=== PATIENT | male | born 1945 | race Caucasian/White ===

== ENCOUNTER 2017-01-29 16:23 | Inpatient (IN) | payer MEDICARE ==
[~2017-01-29] VITALS: Ht 177.8 cm; Wt 89.2 kg
[~2017-01-29 16:23] MED LIST: ASPI325T32 PO; ATOR20TA PO; CHRO1TAB8 PO; CLOP75TA28 PO; FISH OIL OMEGA1 EAC1 PO; METO25TA6 PO; MULT1CAP33 PO
[2017-01-29 16:25] VITALS: BP 165/75; PULSE 95; RESP 20; O2SAT 100
[2017-01-29] MEDS ORDERED: 0.9% Sodium Chloride 1,000 ML IV ONE (16:36)
--- NOTE | 2017-01-29 16:50 | ED.REPORT ---
HPI-General Illness Date of Service Jan 29, 2017 ED Provider: Mazin Conde MD A 72 year old male with a history of [place], stent, hypertension and diabetes presents to the ED due to a possible stroke. The pt was walking with a friend at 14:00 when he had a sudden episode of slurred speech. The episode lasted one to two minutes then resolved spontaneously. This occurred two more times after the initial episode. The pt believes that his symptoms may be related to a stroke or TIA. He denies facial droop, numbness, weakness, nausea, vomiting, diarrhea or chest pain. He also denies recent head trauma or any history of stroke, atrial fibrillation, seizure or brain tumor. The pt has never experienced similar symptoms. Nursing Notes Stated Complaint: STROKE SYMPTOMS Chief Complaint: Stroke Symptoms Nursing Notes Reviewed: Yes Allergies: Coded Allergies: No Known Allergies (Unverified , 01/29/17) Scheduled Aspirin (Aspirin) 325 Mg Tablet 325 MG PO DAILY Atorvastatin (Lipitor) 20 Mg Tablet 20 MG PO DAILY Chromium/Herbal Complex No.238 (Green Tea Caplet) 1 Each Tablet 1 EACH PO DAILY Clopidogrel (Clopidogrel) 75 Mg Tablet 75 MG PO DAILY Metoprolol Tartrate (Metoprolol Tartrate) 25 Mg Tablet 12.5 MG PO BID Multivitamin (Multivitamins) 1 Each Capsule 1 EACH PO DAILY [place]-3/Dha/Epa/Fish Oil (Fish Oil [place]-3 Softgel) 1 Each Capsule.dr 1 EACH PO DAILY General Time Seen by MD: 16:33 Chief Complaint Other (Possible stroke) Hx Obtained From: Patient Arrived By: Walk-in Sudden in Onset?: Yes Onset Occurred: 1 - 4 hours ago Symptom Duration: Intermittent Recent Healthcare: No recent doctor visit, No recent hospitalization Similar Sx Previous: No Past Medical History Past Medical History hypertension diabetes [place] Past Surgical History ankle surgery 20+ years ago stent placement Smoking History Former Smoker Social History Alcohol Use: "Social" Other Social History: Good social support Ambulatory Status Independent Review of Systems slurred speech denies facial droop Full Review of Systems Respiratory: Denies: Non-productive cough, Shortness of breath Cardiovascular: Denies: Chest pain GI: Denies: Abdominal pain, Diarrhea, Nausea, Vomiting Musculoskeletal: Denies: Back pain, Neck pain Skin: Denies Rash Neurologic: Denies: Numbness, Weakness Complete sys rev & neg: except as marked. Physical Exam Vital Signs Vital Signs Date Time Temp Pulse Resp B/P Pulse Ox O2 Delivery O2 Flow Rate FiO2 01/29/17 18:29 54 22 161/65 93 Room Air 01/29/17 17:31 54 19 153/60 96 Room Air 01/29/17 16:25 36.7 95 20 165/75 100 Room Air Initial VS: Reviewed General/Constitutional: Awake, Alert Head / Eyes: Atraumatic, Normocephalic, PERRL, EOMI ENT: Atraumatic, Airway patent, Mucous membranes moist Neck: Atraumatic, Supple, Full range of motion Respiratory / Chest: Atraumatic, Breath sounds NL, Breath sounds = bilat, No respiratory distress Cardiovascular: Heart rate NL, Regular rhythm, Heart sounds NL, No gallop, No murmurs, No rubs Abdomen: Atraumatic, Soft, Non-tender Back: Atraumatic, Full range of motion Upper Extremities Upper Extremity / MS: Atraumatic, Full range of motion Lower Extremity / Pelvis / MS: Atraumatic, Full range of motion Skin: Atraumatic, Color NL, No rash, Warm, Dry Neurologic: Oriented X3, Speech NL, CN II - XII intact speaking fluently in full sentences no slurred speech or facial droop mild left sided pronator drift strength 5/5 in bilateral upper and lower extremities sensation intact in all extremities mild dysmetria with finger to nose testing of the left hand Psychiatric: Affect NL, Mood NL Interpretation & Diagnostics Lab Results Interpretation Result Diagram: 01/29/17 1729 01/29/17 1729 Test 01/29/17 17:29 01/29/17 18:42 White Blood Count 6.8th/mm3 (3.8-10.1) Red Blood Count 4.99mil/mm3 (4.40-5.80) Hemoglobin 14.5g/dL (13.8-17.2) Hematocrit 42.9% (41.0-50.0) Mean Corpuscular Volume 86fL (81-100) Mean Corpuscular Hemoglobin 29.1pg (27.0-35.0) Mean Corpuscular Hemoglobin Concent 33.8% (32.0-37.0) Red Cell Distribution Width 13.4% (12.3-15.4) Platelet Count 144bil/L (150-400) Neutrophils (%) (Auto) 69% (40-74) Lymphocytes (%) (Auto) 20% (14-46) Monocytes (%) (Auto) 10% (4-12) Eosinophils (%) (Auto) 1% (0-5) Basophils (%) (Auto) 0% (0-3) Prothrombin Time 11.0sec (8.1-12.5) Prothromb Time International Ratio 1.03ratio Sodium Level 138mEq/L (134-144) Potassium Level 4.2mEq/L (3.5-5.2) Chloride Level 100mEq/L (97-108) Carbon Dioxide Level 24mmol/L (18-29) Blood Urea Nitrogen 26mg/dL (8-27) Creatinine 1.38mg/dL (0.76-1.27) Estimat Glomerular Filtration Rate 54mL/min (>59) Glucose Level 155mg/dL (60-99) Lactic Acid Level 1.6mmol/L (0.4-2.0) Calcium Level 9.4mg/dL (8.5-10.1) Magnesium Level 2.0mg/dL (1.6-2.6) Total Bilirubin 0.5mg/dL (0.0-1.2) Aspartate Amino Transf (AST/SGOT) 26U/L (0-50) Alanine Aminotransferase (ALT/SGPT) 36U/L (0-44) Alkaline Phosphatase 82U/L (25-160) Troponin T < 0.010ug/L (0.0-0.011) Total Protein 6.5g/dL (6.4-8.4) Albumin 4.0g/dL (3.4-5.0) Urine Color Yellow (YELLOW) Urine Appearance Clear (CLEAR,HAZY) Urine pH 6.5 (5.0-8.0) Urine Specific [place] 1.010 (1.003-1.035) Urine Protein Negativemg/dL (NEG,TRACE) Urine Glucose (UA) Negativemg/dL (NEGATIVE) Urine Ketones Negativemg/dL (NEGATIVE) Urine Occult Blood Negative (NEGATIVE) Urine Nitrite Negative (NEGATIVE) Urine Bilirubin Negative (NEGATIVE) Urine Urobilinogen Normalmg/dL (NORMAL) Urine Leukocyte Esterase Negative (NEGATIVE) Urine RBC 0-2/hpf (0-2) Urine WBC 0-5/hpf (0-5) Urine Epithelial Cells Few/hpf (NONE-MOD) Urine Crystals None seen (NONE SEEN) Urine Bacteria Few/hpf (NONE-FEW) Urine Hyaline Casts None/lpf (NONE) Urine Granular Casts None seen (NONE SEEN) Urine Waxy Casts None seen (NONE SEEN) Urine Red Blood Cell Casts None seen (NONE SEEN) Urine White Blood Cell Casts None seen (NONE SEEN) Urine Mucus None seen (None Seen) Urine Trichomonas None seen (NONE SEEN) Urine Yeast None (NONE SEEN) Urinalysis Comment None Urine Culture Reflexed Not indicated ECG Interpretation ECG Interpretation: normal sinus rhythm with a rate of 52 normal axis normal interval no ST segment elevation no T wave inversions when compared with previous dated 02/14/2015, pt remains with sinus bradycardia no significant changes Time: 17:55 Interpreted by: ED physician X-Ray Chest Interpretation Chest Xray Interpretation: IMPRESSION: No radiographic evidence of acute cardiopulmonary pathology. Dictated by: Severiano Muñoz M.D. on 01/29/2017 at 16:58 Approved by: Severiano Muñoz M.D. on 01/29/2017 at 16:59 Interpretation / Wet Read by: Interpret - Radiologist CT Head Interpretation IMPRESSION: No CT evidence of acute intracranial pathology. Dictated by: Severiano Muñoz M.D. on 01/29/2017 at 17:00 Approved by: Severiano Muñoz M.D. on 01/29/2017 at 17:01 Interpretation / Wet Read by: Interpret - Radiologist Re-Eval/Medical Decision Med Decision/Clinical Course A 72 year old male with a history of [place], stent, hypertension and diabetes presents to the ED due to a possible stroke. The pt was walking with a friend at 14:00 when he had a sudden episode of slurred speech. The episode lasted one to two minutes then resolved spontaneously. This occurred two more times after the initial episode. The pt believes that his symptoms may be related to a stroke or TIA. He denies facial droop, numbness, weakness, nausea, vomiting, diarrhea or chest pain. He also denies recent head trauma or any history of stroke, atrial fibrillation, seizure or brain tumor. The pt has never experienced similar symptoms. Upon arrival to the emergency department the patient reports that his symptoms have completely resolved. Full head to toe neurologic examination is completely unremarkable except for very mild left-sided pronator drift. He has no active slurred speech or significant motor deficits. CT Head: IMPRESSION: No CT evidence of acute intracranial pathology. Chest X-Ray: IMPRESSION: No radiographic evidence of acute cardiopulmonary pathology. Lab for studies notable as below: UA positive for THC, otherwise unremarkable CBC unremarkable CMP unremarkable except for mildly elevated creatinine at 1.38 Lactic acid 1.6 Troponin negative No significant electrolyte abnormalities EKG was obtained and interpreted by myself as documented above. Of note, after initial workup the patient was again noted to have significant slurred speech and per nurse mild right-sided facial droop. By the time I was able to evaluate the patient at the bedside all of his symptoms had artery resolved. Of one to 2 minutes. At this time, the patient's overall presentation is concerning for recurrent TIAs. I feel that the patient requires admission to the hospital for further workup and stroke risk stratification. He has received aspirin in the emergency department. At this time there is no evidence of seizure or intracranial hemorrhage/mass lesion. The patient was discussed with the medical hospitalist accepted for further management stable condition. He is not considered to be a TPA candidate due to the brief nature of his neurologic deficits and rapid spontaneous resolution thereof. Source of Hx: Old records Time of Eval: 16:33 Patient Status: Condition improved Re-Evaluation/Progress Note: Pt is informed of the diagnosis and plan for admission during the initial interview. The pt understands and agrees with the plan. All questions are addressed at this time. Time of Eval: 17:20 Re-Evaluation/Progress Note: Pt rechecked, whose symptoms have recurred. Pt is stable and prepared for admission. Consultation : Referral / Consult Name: Angel Luis Nava MD Consulted With: Hospitalist Call Returned at: 17:35 Phlebotomy Manager: Agrees with eval, Agrees with plan, Accepts admit Note: Spoke with Dr. Nava, hospitalist, regarding pt's case. Dr. Nava agrees with the evaluation and agrees to admit the pt. Counseled Regarding: Diagnosis, Lab results, Need for admission Discharge & Departure Primary Impression: Transient ischemic attack Transient cerebral ischemia type: unspecified Qualified Code: G45.9 - Transient cerebral ischemic attack, unspecified Additional Impression: Slurring of speech Disposition: ADMITTED TO HOSPITAL Discharge Condition All VS Reviewed: Yes Condition: Stable Referrals: Kev Gomez MD (PCP) Crit Care Except Billable Proc Time Spent: 30-74 minutes Services Performed: Patient management by me, Time spent at bedside, Reviewing test results, Reviewing imaging, Discussing patient care, Documentation in record, Time with fam/surrogate Critical Care Notes: Decisions regarding administration of TPA Scribe Attestation Portions of this note were transcribed by Nic Shah. I, Dr. Conde personally performed the history, physical exam and medical decision-making; I reviewed and confirmed the accuracy of the information in the transcribed note. copies to: Kev Gomez MD, Beck O MD Jan 29, 2017 16:49 NIC SHAH Jan 29, 2017 16:59
[2017-01-29] MEDS ORDERED: Ondansetron 2 mg/mL 2 mL Inj IVPUSH PRN ×2 (17:00→17:45)
[2017-01-29] MEDS ORDERED: Alum-Mag Hydrox-Simeth 30 mL Suspension PO PRN ×2 (17:00→17:45)
--- NOTE | 2017-01-29 17:01 | DRSVH ---
PROCEDURE: X-RAY CHEST ONE VIEW, PORTABLE ([id number]) INDICATIONS: ALTERED MENTAL STATUS TECHNIQUE: One view of the chest was acquired. COMPARISON: None. FINDINGS: Surgical changes and devices: None. Lungs and pleura: No pleural effusions or pneumothorax. Lungs are clear. Mediastinum: Mediastinal contours appear normal. Heart size is normal. Bones and chest wall: No suspicious bony lesions. Overlying soft tissues appear unremarkable. Righ t shoulder degenerative change. IMPRESSION: No radiographic evidence of acute cardiopulmonary pathology. Dictated by: Severiano Muñoz M.D. on 01/29/2017 at 16:58 Approved by: Severiano Muñoz M.D. on 01/29/2017 at 16:59
--- NOTE | 2017-01-29 17:03 | DRSVH ---
PROCEDURE: CT BRAIN WITHOUT CONTRAST ([id number]) INDICATIONS: ams TECHNIQUE: Noncontrast 4.5 mm thick angled axial sections acquired from the foramen magnum to the vertex, with c oronal reformats. COMPARISON: None. FINDINGS: Image quality: Excellent. CSF spaces: Basal cisterns are patent. No extra-axial fluid collections. Ventricles are normal in size and shape. Brain: No midline shift. No intracranial masses or hemorrhage. [place]-white matter interface is norm al. Skull and face: Calvarium and visualized facial bones are intact, without suspicious lesions. Sinuses: Visualized sinuses and mastoids are clear. IMPRESSION: No CT evidence of acute intracranial pathology. Dictated by: Severiano Muñoz M.D. on 01/29/2017 at 17:00 Approved by: Severiano Muñoz M.D. on 01/29/2017 at 17:01
[2017-01-29 17:31] VITALS: BP 153/60; PULSE 54; RESP 19; O2SAT 96
[2017-01-29 17:36] LABS: BASOPHILS % (AUTO) 0 % (0-3); EOSINOPHILS % (AUTO) 1 % (0-5); MONOCYTES % (AUTO) 10 % (4-12); Mean Corpuscular Hemoglobin 29.1 pg (27.0-35.0); Mean Corpuscular Volume 86 fL (81-100); NEUTROPHILS % (AUTO) 69 % (40-74); Platelet Count 144 bil/L (150-400)
[2017-01-29] MEDS ORDERED: Polyethylene Glycol (PEG) 17 Gm Powder PO PRN (17:45)
--- NOTE | 2017-01-29 17:54 | PCM.HPMED ---
Subjective Date of Service Jan 29, 2017 Primary Provider: Admitting Physician: Primary Care Physician: Kev Gomez MD Attending Physician: Chief Complaint: Patient is a 72-year-old right-handed male with medical history significant for diabetes type II, hypertension, dyslipidemia, and coronary artery disease sent it to the ED with transient slurred speech. History of Present Illness: Per patient, he states around 1400hr his partner noted significant slurring of speech with associated right hand numbness that it rapidly improve after 2-3 minutes resting. Patient denies any unilateral weakness, facial droop, lightheadedness, dizziness, shortness of breath, chest pain, or palpitation on doing or after the event. In fact patient has been walking for about 1/3 mile with dog without any difficulty. An following the event, patient walked to his home prior to coming to the. No nausea or vomiting. In the ED, patient vital remained stable temperature 36.7, respiratory rate 19, pulse oximetry 100%, however pulse is 54, and blood pressure is 153/60. Chest x -ray as well as CT brain was unremarkable. There were no noted neurological deficit on initial exam. EKG sinus bradycardic rate of 52. Per nursing report however, patient went on to have 3 separate episodes lasting between 1-2 minutes of slurred speech with slight right-sided facial droop. Blood work significant for creatinine of 1.38, significantly up from baseline of 0.8 and glucose of 155. Review of Systems: A comprehensive review of systems was conducted with the patient and found to be negative except as above in the History of Present Illness. Allergies Coded Allergies: No Known Allergies (Unverified , 01/29/17) Home Medications Metformin 500 mg daily Atenolol 50 mg daily Aspirin 81 mg daily PMH Diabetes type II Coronary artery disease Hypertension Dyslipidemia History of [place] Surgical History Stenting 1, distal RCA 2014 Family History Eyes any family history of heart disease Father had unspecified cancer Social History Hx Alcohol Use: Yes Alcoholic Drinks Per Day: 2-5 beers a week. Hx Substance Use: No Smoking Status: Former Smoker Exam Vital Signs Vital Sign - Last Date Time Temp Pulse Resp B/P Pulse Ox O2 Delivery O2 Flow Rate FiO2 01/29/17 17:31 54 19 153/60 96 Room Air 01/29/17 16:25 36.7 Exam General: No acute distress, appropriately interactive HEENT: Normocephalic, atraumatic. PERRLA, EOMI, Anicteric sclerae, moist conjunctivae. Neck: No JVD, No bruits. No lymphadenopathy or thyromegaly. Cardiovascular: Regular rate and rhythm with no murmurs, rubs, or gallops appreciated Pulmonary: b/l air sound with no crackles, wheezes, or rhonchi. no use of accessory muscles. Abdomen: +Bowel sound, Soft, nontender, nondistended. Extremities: No clubbing or cyanosis, no lymphedema, no b/l lower leg edema Skin: Normal temperature, turgor, and texture; no rash. No visualized skin ulcer. Neurological: CN II-VII grossly intact, moving equally on all 4 extremities, NIH score 0 Psychiatric: Normal mood and affect. AOx3 Lab and Diagnostics Result Diagram: 01/29/17 1729 X-Rays, CTs and MRIs PROCEDURE: CT BRAIN WITHOUT CONTRAST ([id number]) INDICATIONS: ams IMPRESSION: No CT evidence of acute intracranial pathology. Dictated by: Severiano Muñoz M.D. on 01/29/2017 at 17:00 Assessment & Plan Patient is a 72-year-old male with a medical history significant for diabetes type II, hypertension, [place] initially presented with slurred speech that resolved , admitted for TIA workup. TIA -CT head without contrast unremarkable for any acute findings -ASA 325mg and atorvastatin daily. consider nicardipine if SBP >200mmHg -Echocardiogram and MR stroke protocol ordered -Telemetry orders -Physical therapy eval ordered -neuro check q4h Acute Kidney Injury -Cr 1.3 from baseline 0.8 -likely dehydration -NS 125cc/hr. abstain from nephrotoxic meds Hypertension -bradycardic BP< 60 -hold home metopolol -as above, nicardipine if SBP >200mmhg. Coronary artery disease -1x stenting, off Plavix after 1.5yr -start statin as above Diabetes type II -A1c pending -Lispro low-dose sliding scale Dyslipidemia -Lipid panel ordered -Restart atorvastatin 40 mg daily CODE STATUS full code DVT prophylaxis heparin subq Patient Status: Patient is admitted under observation status with expected length of stay LESS than 2 midnights due to severity of presenting symptoms, risk of adverse event, and complexity of treatment plan. GI Prophylaxis: Not indicated VTE Prophylaxis: Sub-Q Heparin (Unfractionated) Resuscitation Status: CPR: Attempt Resuscitation Nathen Brown DO Jan 29, 2017 17:54
[2017-01-29 17:59] LABS: INR 1.03 ratio
[2017-01-29 18:29] VITALS: BP 161/65; PULSE 54; RESP 22; O2SAT 93
[2017-01-29 18:55] LABS: APPEARANCE,URINE CLEAR (CLEAR,HAZY); COLOR,URINE YELLOW (YELLOW); OCCULT BLOOD,URINE NEGATIVE (NEGATIVE); PH,URINE 6.5 (5.0-8.0); UROBILINOGEN,URINE NORMAL (NORMAL)
[2017-01-29 19:06] VITALS: BP 137/60; PULSE 48; RESP 22; O2SAT 93
[2017-01-29 20:00] VITALS: BP 144/72; PULSE 50; RESP 22; O2SAT 96
[2017-01-29] MEDS ORDERED: ASPI-973 PO (20:27)
[2017-01-29] MEDS ORDERED: METF500T4 PO (20:27)
--- NOTE | 2017-01-29 21:45 | NUR ---
ADMIT; 72 yr old male to room 1002 per margret from [facility] at approx. 1945 with c/o sudden tingling in hand and slurred speech while walking. Neuro check wnl now. Addendum: 01/30/17 at 0025 by BARBARA EARL RN SIG. other states pt is at his baseline now.
[2017-01-29] MEDS: 0.9% Sodium Chloride 1,000 ML IV SCH (23:23)
[2017-01-29] MEDS: Heparin 5,000 Unit/mL Inj SUBQ SCH (23:35)
--- NOTE | 2017-01-29 23:49 | NUR ---
CV; pt passed swallow eval. 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 Dr. esposito. Dr. Marx in to see pt. at 2330. Pt denies numbness, tingling or trouble with speech. Yard Coupler equal, swallowing without difficulty, perrl, tongue midline, eyebrows and smile symmetrical. Alert and oriented x3.
[2017-01-30 00:45] VITALS: BP 132/75; PULSE 46; RESP 20; O2SAT 94
[2017-01-30] MEDS: 0.9% Sodium Chloride 1,000 ML IV SCH ×2 (01:40→09:48)
--- NOTE | 2017-01-30 03:20 | NUR ---
; stood at side of bed independently to use the urinal.
--- NOTE | 2017-01-30 03:23 | NUR ---
NEURO; checks remain unchanged. Pt denying pain or discomfort. States having problems getting to sleep.
[2017-01-30 05:45] LABS: TROPONIN T 0.01 ug/L (0.0-0.011)
--- NOTE | 2017-01-30 08:09 | PCM.PNMED ---
Subjective Date of Service Jan 30, 2017 Subjective Patient seen and examined. Doing good today. No complaints. Vitals noted. Exam Vital Signs Vital Sign - Last Date Time Temp Pulse Resp B/P Pulse Ox O2 Delivery O2 Flow Rate FiO2 01/30/17 00:45 36.6 46 20 132/75 94 Room Air Intake and Output 01/29/17 01/29/17 01/30/17 Cumulative From/Thru 15:00 23:00 07:00 01/29/17 16:25 - 01/30/17 06:58 Intake Total 1000 ml 1083 ml 2083 ml Output Total 525 ml 525 ml Balance 1000 ml 558 ml 1558 ml Intake Oral 400 ml 400 ml IV Total 1000 ml 683 ml 1683 ml Output Urine Total 525 ml 525 ml # Voids 2 2 # Bowel Movements 0 0 Exam General: No acute distress, appropriately interactive HEENT: Normocephalic, atraumatic. PERRLA, EOMI, Anicteric sclerae, moist conjunctivae. Neck: No JVD, No bruits. No lymphadenopathy or thyromegaly. Cardiovascular: Regular rate and rhythm with no murmurs, rubs, or gallops appreciated Pulmonary: b/l air sound with no crackles, wheezes, or rhonchi. no use of accessory muscles. Extremities: No clubbing or cyanosis, no lymphedema, no b/l lower leg edema Neurological: CN II-VII grossly intact, moving equally on all 4 extremities, NIH score 0 Psychiatric: Normal mood and affect. AOx3 Lab and Diagnostics Result Diagram: 01/29/17 1729 01/30/17 0438 X-Rays, CTs and MRIs PROCEDURE: CT BRAIN WITHOUT CONTRAST ([id number]) INDICATIONS: ams IMPRESSION: No CT evidence of acute intracranial pathology. Dictated by: Severiano Muñoz M.D. on 01/29/2017 at 17:00 MRI Stroke protocol IMPRESSION: BRAIN MRI: 1. 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 2. Mild chronic deep white matter small vessel ischemic change and age related atrophy. 3. Mild, chronic bilateral maxillary sinusitis. BRAIN MR ANGIOGRAM: 1. Intracranial anterior circulation appears normal. 2. Intracranial posterior circulation is normal except for a focal low grade stenosis in the left posterior cerebral artery. NECK MR ANGIOGRAM: 1. Shallow plaque left ICA with 50% stenosis. Normal right bifurcation. 2. Left vertebral artery is dominant. Low grade focal stenosis at its origin. 3. Ostial stenosis nondominant right vertebral artery. 4. Focal stenosis right subclavian artery just beyond the origin of the common carotid. 5. Focal stenosis at the origin of the right common carotid artery. The estimate of stenosis included in the report of the imaging study was calculated using the NASCET method Cardiac Echo Impressions Interpretation Summary The ejection fraction is estimated to be 50-55%. There is proximal mid posteriolateral wall mild hypokinesis. The right ventricle is at the upper limits of normal in size. The left atrium is moderately dilated. There is no Doppler evidence for an interatrial shunt. There is mild mitral regurgitation. There is mild tricuspid regurgitation. The right ventricular systolic pressure is estimated at 46 mmHg assuming a right atrial pressure of 15 mm Hg. Compared to prior echo report on 2014, changes are noted. Assessment & Plan Patient is a 72-year-old male with a medical history significant for diabetes type II, hypertension, [place] initially presented with slurred speech that resolved , admitted for TIA workup. Admitted for TIA, Stroke confirmed, symptoms resolved -CT head without contrast unremarkable for any acute findings -ASA 325mg and atorvastatin daily. consider nicardipine if SBP >200mmHg -Echo and MRI noted above, acute/subacute stroke in parietal lobe , vessel changes in subclavian and vertebral arteries -Physical therapy eval ordered - Talked to Dr. 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, has never been diagnosed with afib/tachyarrhythmias - will stop metoprolol for now - outpatient holter Hypertension, chronic -bradycardic HR< 60, consistently -hold home metopolol - will start patient on amlodipine Coronary artery disease -1x stenting, off Plavix after 1.5yr -start statin as above Diabetes type II -A1c pending -Lispro low-dose sliding scale Dyslipidemia -Lipid panel ordered -Restart atorvastatin 40 mg daily CODE STATUS full code DVT prophylaxis heparin subq Patient Status: Patient is admitted under observation status with expected length of stay LESS than 2 midnights due to severity of presenting symptoms, risk of adverse event, and complexity of treatment plan. GI Prophylaxis: Not indicated VTE Prophylaxis: Sub-Q Heparin (Unfractionated) VTE Mechanical Devices: Intermittant Pneumatic CD Resuscitation Status: CPR: Attempt Resuscitation Time spent 35 mins Angel Luis Nava MD Jan 30, 2017 08:09
[2017-01-30 08:44] VITALS: BP 170/77; PULSE 49; RESP 17; O2SAT 95
[2017-01-30] MEDS: Heparin 5,000 Unit/mL Inj SUBQ SCH ×2 (09:50→17:14)
--- NOTE | 2017-01-30 10:22 | NUR ---
Evaluation completed. Please go to "Notes" then click on "Assessments and Notes" (bottom left corner of screen). Then select appropriate discipline tab on top of screen.
--- NOTE | 2017-01-30 11:47 | NUR ---
Case Management: ANNA given and explained to pt. Marce WHITERN
--- NOTE | 2017-01-30 11:58 | DRSVH ---
[facility] [address] [place] [address] Echocardiogram Report Name: SANTIAGO HANSON Study Date: 01/30/2017 Height: 70 in Hospital Exam Location: [facility] Weight: 193 lb Gender: Male BSA: 2.1 m2 : 1945 Age: 72 yrs BP: 132/75 mmHg Reason For Study: TIA Ordering Physician: Performed By: Rosemary Sanchez Referring Physician: MD Tammy Armando Interpretation Summary The ejection fraction is estimated to be 50-55%. There is proximal mid posteriolateral wall mild hypokinesis. The right ventricle is at the upper limits of normal in size. The left atrium is moderately dilated. There is no Doppler evidence for an interatrial shunt. There is mild mitral regurgitation. There is mild tricuspid regurgitation. The right ventricular systolic pressure is estimated at 46 mmHg assuming a right atrial pressure of 15 mm Hg. Compared to prior echo report on 2014, changes are noted. Procedure: A two-dimensional transthoracic echocardiogram with color flow and Doppler was performed. The study quality was technically adequate. Comparison is made with the echocardiogram of 05/18/2015. The patient was in sinus bradycardia with heart rates between 48-56 bpm during the exam. Left Ventricle: The left ventricle is normal in size. There is normal left ventricular wall thickness. There is no thrombus. The ejection fraction is estimated to be 50-55%. There is proximal mid posteriolateral wall mild hypokinesis. Right Ventricle: The right ventricle is at the upper limits of normal in size. The right ventricular systolic function is normal. Atria: The left atrium is moderately dilated. The right atrium is mildly dilated. There is no Doppler evidence for an interatrial shunt. Mitral Valve: The mitral valve is normal in structure and function. There is mild mitral regurgitation. Aortic Valve: The aortic valve is normal in structure and function. There is trace aortic regurgitation. Tricuspid Valve: The tricuspid valve is normal in structure and function. There is mild tricuspid regurgitation. The right ventricular systolic pressure is estimated at 46 mmHg assuming a right atrial pressure of 15 mm Hg. Pulmonic Valve: The pulmonic valve is not well seen, but is grossly normal. There is no pulmonic valvular regurgitation. Great Vessels: The aortic root is borderline dilated. The ascending aorta is mildly enlarged. The aortic arch is normal in size. The IVC is dilated (diameter is greater than 2.1 cm) and it collapses less than 50% with a sniff. This suggests a high right atrial pressure of 15 mm Hg. Pericardium/ Pleura There is no pericardial effusion. There is no pleural effusion. MMode/2D Measurements & Calculations LVIDd: 5.1 cm RA long axis LVOT diam: 2.2 cm LVIDs: 3.2 cm LA A2 area: 25.6 cm Ao root diam FS: 37.1 % LA A4 area: 28.2 cm RA area EPSS: 0.44 cm LA length (vol) Aortic Jxn: 3.0 cm IVSd: 0.92 cm : 21.0 cm asc Aorta Diam LVPWd: 0.97 cm LA vol: 90.6 ml RA vol LA vol index : 62.1 ml Ao Arch Diam (Prox RA Trans): 2.7 cm : 30.2 mm2 IVC diam: 2.5 cm LV moeller. diameter/BSA LV sys. diameter/BSA RVD1 (basal) RVD2 (mid): 2.9 cm (cm/m^2): 2.5 (cm/m^2): 1.6 TAPSE: 2.8 cm Doppler Measurements & Calculations Ao V2 max MV E max alejandro MV E/A: 2.1 TR max alejandro : 137.8 cm/sec : 110.0 cm/sec Med Peak E' Alejandro : 279.7 cm/sec Ao max PG MV A max alejandro TR max PG : 7.6 mmHg : 53.3 cm/sec E/E' med: 16.4 : 31.3 mmHg Ao mean PG MV P1/2t: 49.7 msec Lat Peak E' Alejandro PA V2 max : 80.5 cm/sec LVOT Max Alejandro E/E' lat: 11.2 PA mean PG : 106.7 cm/sec E/e' average PA Accel Time MODE(I,D): 3.3 cm : 0.11 sec sev ratio MV dec time MV P1/2t max alejandro Ao V2 mean LV V1 max PG : 0.17 sec : 86.1 cm/sec MVA(P1/2t): 4.4 cm2 Ao V2 VTI: 29.9 cmLV V1 VTI MODE(V,D): 2.9 cm2 : 25.6 cm PA V2 mean MODE indexed to BSA : 54.5 cm/sec (cm^2/m^2): 1.6 Electronically signed by: Ford Ferrara on Reading Physician:01/30/2017 11:57 AM
--- NOTE | 2017-01-30 14:04 | DRSVH ---
PROCEDURE: MRI STROKE PROTOCOL ([id number]) Pre- and post-contrast brain MRI, non-contrast brain MR angiogram, pre- and postcontrast neck MR codi ogram INDICATIONS: tia TECHNIQUE: Brain: Noncontrast axial T1 spin echo, axial T2 fast spin echo, sagittal and axial FLAIR, coronal T2 fast spin echo, axial gradient echo, axial diffusion and ADC through the brain. After the administr ation of contrast, axial 3D VIBE of the cranial vasculature and brain. Brain MRA: Non-contrast 3-D time of flight MR angiogram, with multiple vpnegjs-vfgtrzzzs-wlhljzuiiz (MIP) reformats performed. Neck MRA: Axial and sagittal TruFISP through the neck. Coronal dynamic MR angiogram during administ ration of contrast in the arterial and venous phases, with 3-dimenstional qbxkrbx-xpkmakrvw-vosurzbrd n (MIP) reformats constructed from subtraction images. COMPARISON: CT brain 01/29/2017 FINDINGS: Image quality: Excellent. BRAIN: CSF spaces: Ventricles are symmetrical in size and shape. Basal cisterns are patent. No extra-axia l fluid collections. There is mild age related volume loss. Brain: No intracranial bleeds or mass effects. Palomino-white matter interface is normal. Diffusion we ighted images show an acute ischemic insult in the right parietal lobe at the cortical medullary junc tion measuring approximately 1 cm in thickness by 3.3 cm in width. Corresponding signal loss in the A DC mapping. There is mild periventricular flair signal changes.. Brainstem appears normal. Normal i ntravascular flow voids are present. No abnormal intracranial enhancement. Skull and face: Calvarial marrow signal is normal. Orbits appear normal. Sinuses: Sinuses and mastoids are clear. BRAIN MR ANGIOGRAM: Anterior circulation: Intracranial internal carotid arteries are normal in size and enhancement. Th e flow within the paired anterior cerebral arteries is normal and symmetric. The flow within the mid dle cerebral arteries is normal and symmetric. The anterior communicating artery is seen. No stenos es, occlusions, or aneurysms. Posterior circulation: The visualized portions of the vertebral arteries demonstrate normal caliber, and join to form a normal appearing basilar artery. The left vertebral is dominant. The flow within the posterior cerebral arteries is normal and symmetric. There is a low grade focal stenosis in the p roximal left P2 segment. No aneurysms. NECK MR ANGIOGRAM: Carotids: Great vessels demonstrate a conventional anatomy as they arise from the aortic arch. The origins of the common carotid arteries appear patent, however there is a focal stenosis just above th e origin of the right common carotid artery. The calibers and courses of both common carotid arterie s are normal. The bifurcation regions appear normal on the right with a 50% stenosis secondary to sh allow plaque in the proximal ICA on the left. The internal carotid arteries demonstrate normal cours e and caliber. Posterior circulation: The origin of the right vertebral appears stenotic. Low grade stenosis at the origin of the dominant left vertebral. More superior portions of both vertebral arteries demonstrate normal course and caliber, and join to form a normal appearing basilar artery. Miscellaneous: Subclavian arteries appear patent, however there is apparent weblike stenosis in the proximal right subclavian artery just beyond the common carotid takeoff.. Pre-contrast images throug h the neck show no soft tissue abnormalities. IMPRESSION: BRAIN MRI: 1. 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 2. Mild chronic deep white matter small vessel ischemic change and age related atrophy. 3. Mild, chronic bilateral maxillary sinusitis. BRAIN MR ANGIOGRAM: 1. Intracranial anterior circulation appears normal. 2. Intracranial posterior circulation is normal except for a focal low grade stenosis in the left pos terior cerebral artery. NECK MR ANGIOGRAM: 1. Shallow plaque left ICA with 50% stenosis. Normal right bifurcation. 2. Left vertebral artery is dominant. Low grade focal stenosis at its origin. 3. Ostial stenosis nondominant right vertebral artery. 4. Focal stenosis right subclavian artery just beyond the origin of the common carotid. 5. Focal stenosis at the origin of the right common carotid artery. The estimate of stenosis included in the report of the imaging study was calculated using the NASCET method Dictated by: Yair Martinez M.D. on 01/30/2017 at 13:46 Approved by: Yair Martinez M.D. on 01/30/2017 at 14:03
[2017-01-30 15:10] VITALS: BP 172/84; PULSE 50; RESP 18; O2SAT 96
--- NOTE | 2017-01-30 15:57 | NUR ---
Social Work: Initial Assessment/Multi-Disciplinary Rounds D: EMR reviewed. Please see Initial Assessment linked to this note for more information. Pt is a 72 y/o male admitted [facility] with no readmit risk score for TIA per H&P. Pt's insurance is [employer]. PCP is Kev Gomez MD. SW met with pt at bedside to conduct initial assessment. Pt was alert and oriented x3. SW explained role and wrote phone number on white board. SW provided [facility] Discharge Planning Checklist and encouraged pt to contact SW for any discharge planning questions. Pt discussed in multidisciplinary rounds and is not medically stable for discharge at this time, anticipate 1-2 more days. No SW needs identified, no MD orders received. Pt lives at home with his SO in [facility]. Pt has not hx of a SNF or HH. Pt owns a walker, wheelchair, cane, and bedside commode. Pt does not use any DME. Pt is independent with all ADLs and ambulation. Pt drives. SW provided DPOA/advanced directive ppw and encouraged pt to provide a copy to the hospital once complete. A: Pt who is independent at baseline and has the capacity for self-care. P: Pt anticipated to discharge home in 1-2 days with SO via POV. No SW needs identified at this time, no MD orders received. SW will continue to follow for needs until time of discharge. DEJAH Armstrong Addendum: 01/30/17 at 1618 by TINY CAMACHO SS Amended: Links added.
[2017-01-30 17:10] VITALS: BP 176/94; PULSE 48
--- NOTE | 2017-01-30 19:07 | NUR ---
Activity Patient up independent in room. Denies pain and nausea this shift. Repositions self for comfort. Call light and tray table within reach. Will continue to monitor patient hourly.
[2017-01-30 19:52] VITALS: BP 177/85; PULSE 54; RESP 20; O2SAT 95
[2017-01-31] VITALS (7 sets, daily range): BP systolic 157–187; BP diastolic 77–85; PULSE 52–59; RESP 18; O2SAT 92–95
[2017-01-31] MEDS: Heparin 5,000 Unit/mL Inj SUBQ SCH ×3 (00:18→16:30)
--- NOTE | 2017-01-31 06:22 | NUR ---
ACTIVITY: Resting in bed through the night, no c/o pain or discomfort. Was up early this am to take a shower, independent with ADLs. A & O, vss. On going care.
[2017-01-31] MEDS ORDERED: AMLO5TAB2 PO (11:57)
[2017-01-31] MEDS ORDERED: LISI-571 PO ×2 (11:57→17:14)
[2017-01-31] MEDS ORDERED: CLOP75TA28 PO (11:57)
[2017-01-31] MEDS ORDERED: ATOR40TA69 PO (11:57)
--- NOTE | 2017-01-31 11:58 | PCM.DIMED ---
Discharge Instructions Date of Service Jan 31, 2017 Dates of Hospitalization Jan 29, 2017 at 18:58 Discharge Diagnosis Discharge Diagnosis Stroke Medication Instructions Additional med instructions Metoprolol stopped due to bradycardia Diet Discharge Diet: Heart Healthy Activity Discharge Activity: Limited until seen by PCP Call your provider Call your provider for: Fever or Chills, Chest pain Patient Instructions Follow-up with PCP in: 1 week (Holter monitor and Vascular surgery consult ) Angel Luis Nava MD Jan 31, 2017 11:58
--- NOTE | 2017-01-31 12:02 | PCM.DC.MED ---
Discharge Summary Date of Service Jan 31, 2017 Dates of Hospitalization Date of Hospital Admission Jan 29, 2017 at 18:58 Date of Discharge: Jan 31, 2017 Providers: Admitting Physician: Alicia Tadeo MD Primary Care Physician: Kev Gomez MD Attending Physician: Alicia Tadeo MD Diagnosis at Time of Discharge Diagnosis at Time of Discharge Stroke Procedures XRay, CTs & MRIs PROCEDURE: CT BRAIN WITHOUT CONTRAST ([id number]) INDICATIONS: ams IMPRESSION: No CT evidence of acute intracranial pathology. Dictated by: Severiano Muñoz M.D. on 01/29/2017 at 17:00 MRI Stroke protocol IMPRESSION: BRAIN MRI: 1. 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 2. Mild chronic deep white matter small vessel ischemic change and age related atrophy. 3. Mild, chronic bilateral maxillary sinusitis. BRAIN MR ANGIOGRAM: 1. Intracranial anterior circulation appears normal. 2. Intracranial posterior circulation is normal except for a focal low grade stenosis in the left posterior cerebral artery. NECK MR ANGIOGRAM: 1. Shallow plaque left ICA with 50% stenosis. Normal right bifurcation. 2. Left vertebral artery is dominant. Low grade focal stenosis at its origin. 3. Ostial stenosis nondominant right vertebral artery. 4. Focal stenosis right subclavian artery just beyond the origin of the common carotid. 5. Focal stenosis at the origin of the right common carotid artery. The estimate of stenosis included in the report of the imaging study was calculated using the NASCET method Cardiac Echo Impression Interpretation Summary The ejection fraction is estimated to be 50-55%. There is proximal mid posteriolateral wall mild hypokinesis. The right ventricle is at the upper limits of normal in size. The left atrium is moderately dilated. There is no Doppler evidence for an interatrial shunt. There is mild mitral regurgitation. There is mild tricuspid regurgitation. The right ventricular systolic pressure is estimated at 46 mmHg assuming a right atrial pressure of 15 mm Hg. Compared to prior echo report on 2014, changes are noted. Brief History Per patient, he states around 1400hr his partner noted significant slurring of speech with associated right hand numbness that it rapidly improve after 2-3 minutes resting. Patient denies any unilateral weakness, facial droop, lightheadedness, dizziness, shortness of breath, chest pain, or palpitation on doing or after the event. In fact patient has been walking for about 1/3 mile with dog without any difficulty. An following the event, patient walked to his home prior to coming to the. No nausea or vomiting. In the ED, patient vital remained stable temperature 36.7, respiratory rate 19, pulse oximetry 100%, however pulse is 54, and blood pressure is 153/60. Chest x -ray as well as CT brain was unremarkable. There were no noted neurological deficit on initial exam. EKG sinus bradycardic rate of 52. Per nursing report however, patient went on to have 3 separate episodes lasting between 1-2 minutes of slurred speech with slight right-sided facial droop. Blood work significant for creatinine of 1.38, significantly up from baseline of 0.8 and glucose of 155. Hospital Course Patient is a 72-year-old male with a medical history significant for diabetes type II, hypertension, DE initially presented with slurred speech that resolved , admitted for TIA workup. Admitted for TIA, Stroke confirmed, symptoms resolved -CT head without contrast unremarkable for any acute findings -ASA 325mg and atorvastatin daily. consider nicardipine if SBP >200mmHg -Echo and MRI noted above, acute/subacute stroke in parietal lobe , vessel changes in subclavian and vertebral arteries - Talked to Dr. 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, has never been diagnosed with afib/tachyarrhythmias - will stop metoprolol for now - outpatient holter Hypertension, chronic -bradycardic HR< 60, consistently -hold home metopolol - will start patient on amlodipine and lisinopril - some permissive HTN for now, will need to be followed up outpatient Coronary artery disease -1x stenting, off Plavix after 1.5yr -start statin as above Diabetes type II -A1c pending -Lispro low-dose sliding scale Dyslipidemia -Lipid panel ordered -Restart atorvastatin 40 mg daily CODE STATUS full code DVT prophylaxis heparin subq Patient Status: Patient is admitted under observation status with expected length of stay LESS than 2 midnights due to severity of presenting symptoms, risk of adverse event, and complexity of treatment plan. Exam Vital Signs (Last) Date Time Temp Pulse Resp B/P Pulse Ox O2 Delivery O2 Flow Rate FiO2 01/31/17 08:01 36.4 55 18 172/83 94 Room Air Test 01/29/17 17:29 01/29/17 18:42 01/30/17 04:38 White Blood Count 6.8th/mm3 (3.8-10.1) Red Blood Count 4.99mil/mm3 (4.40-5.80) Hemoglobin 14.5g/dL (13.8-17.2) Hematocrit 42.9% (41.0-50.0) Mean Corpuscular Volume 86fL (81-100) Mean Corpuscular Hemoglobin 29.1pg (27.0-35.0) Mean Corpuscular Hemoglobin Concent 33.8% (32.0-37.0) Red Cell Distribution Width 13.4% (12.3-15.4) Platelet Count 144bil/L (150-400) Neutrophils (%) (Auto) 69% (40-74) Lymphocytes (%) (Auto) 20% (14-46) Monocytes (%) (Auto) 10% (4-12) Eosinophils (%) (Auto) 1% (0-5) Basophils (%) (Auto) 0% (0-3) Prothrombin Time 11.0sec (8.1-12.5) Prothromb Time International Ratio 1.03ratio Hemoglobin A1c 6.7% (4.8-5.6) Lactic Acid Level 1.6mmol/L (0.4-2.0) Magnesium Level 2.0mg/dL (1.6-2.6) Urine Color Yellow (YELLOW) Urine Appearance Clear (CLEAR,HAZY) Urine pH 6.5 (5.0-8.0) Urine Specific [facility] 1.010 (1.003-1.035) Urine Protein Negativemg/dL (NEG,TRACE) Urine Glucose (UA) Negativemg/dL (NEGATIVE) Urine Ketones Negativemg/dL (NEGATIVE) Urine Occult Blood Negative (NEGATIVE) Urine Nitrite Negative (NEGATIVE) Urine Bilirubin Negative (NEGATIVE) Urine Urobilinogen Normalmg/dL (NORMAL) Urine Leukocyte Esterase Negative (NEGATIVE) Urine RBC 0-2/hpf (0-2) Urine WBC 0-5/hpf (0-5) Urine Epithelial Cells Few/hpf (NONE-MOD) Urine Crystals None seen (NONE SEEN) Urine Bacteria Few/hpf (NONE-FEW) Urine Hyaline Casts None/lpf (NONE) Urine Granular Casts None seen (NONE SEEN) Urine Waxy Casts None seen (NONE SEEN) Urine Red Blood Cell Casts None seen (NONE SEEN) Urine White Blood Cell Casts None seen (NONE SEEN) Urine Mucus None seen (None Seen) Urine Trichomonas None seen (NONE SEEN) Urine Yeast None (NONE SEEN) Urinalysis Comment None Urine Culture Reflexed Not indicated Sodium Level 140mEq/L (134-144) Potassium Level 3.8mEq/L (3.5-5.2) Chloride Level 105mEq/L (97-108) Carbon Dioxide Level 22mmol/L (18-29) Blood Urea Nitrogen 22mg/dL (8-27) Creatinine 1.22mg/dL (0.76-1.27) Estimat Glomerular Filtration Rate 62mL/min (>59) Glucose Level 166mg/dL (60-99) Calcium Level 8.3mg/dL (8.5-10.1) Total Bilirubin 0.4mg/dL (0.0-1.2) Aspartate Amino Transf (AST/SGOT) 20U/L (0-50) Alanine Aminotransferase (ALT/SGPT) 27U/L (0-44) Alkaline Phosphatase 72U/L (25-160) Troponin T 0.010ug/L (0.0-0.011) Total Protein 5.4g/dL (6.4-8.4) Albumin 3.5g/dL (3.4-5.0) Triglycerides Level 99mg/dL (0-149) Cholesterol Level 131mg/dL (100-199) LDL Cholesterol, Calculated 72.200mg/dL (0-99) VLDL Cholesterol 19.800mg/dL HDL Cholesterol 39mg/dL (>39) Cholesterol/HDL Ratio 3.36 (0.0-4.4) Discharge Medications Discharge Medications Amlodipine (Amlodipine) 5 Mg Tablet 10 MG PO DAILY Prescribed by: ALICIA TADEO MD Aspirin (Aspirin) 81 Mg Tablet 81 MG PO DAILY (Reported) Atorvastatin (Lipitor) 20 Mg Tablet 20 MG PO DAILY (Reported) Atorvastatin Calcium (Atorvastatin Calcium) 40 Mg Tablet 80 MG PO HS Prescribed by: ALICIA TADEO MD Clopidogrel (Clopidogrel) 75 Mg Tablet 75 MG PO DAILY Prescribed by: ALICIA TADEO MD Lisinopril (Lisinopril) 5 Mg Tablet 10 MG PO DAILY Prescribed by: ALICIA TADEO MD Metformin (Metformin) 500 Mg Tablet 500 MG PO DAILYWM (Reported) Additional med instructions Metoprolol stopped due to bradycardia Followup Plan Discharge Diet: Heart Healthy Discharge Activity: Limited until seen by PCP Follow-up with PCP in: 1 week (Holter monitor and Vascular surgery consult ) Time spent 35 mins copies to: Kev Gomez MD, Abhinav MD Jan 31, 2017 12:02
--- NOTE | 2017-01-31 14:28 | NUR ---
IV Site IV removed by patient. MD aware. Call light and tray table within reach. Will continue to monitor patient hourly.
--- NOTE | 2017-01-31 16:34 | NUR ---
Case Management: IMM explained to patient at 1525, all questions answered. Signed original placed in chart, copy given to patient. Natalie Claudio RN
--- NOTE | 2017-01-31 17:09 | NUR ---
Ben calloway MD at informing MD of recent BP of 163/82. Patient would like to be discharged this evening. Awaiting response. Addendum: 01/31/17 at 1720 by JURGEN ROWE RN MD responded. Patient discharged home.
--- NOTE | 2017-01-31 17:22 | NUR ---
Social Work: Discharge D: EMR reviewed. Pt is on day 2 of hospitalization. Pt to discharge this evening, discharge orders are active. Pt lives at home with his SO in [facility]. Pt is independent with all ADLs and self-care. No d/c needs identified. A: Pt who is independent at baseline and has the capacity for self-care. P: Pt to discharge home with SO via POV. No SW needs identified. Bernice Lomas MSW
--- NOTE | 2017-01-31 19:12 | NUR ---
Discharge Patient discharged home. IV DC'd by patient. Discharge instructions given with no questions. RX faxed to [facility] and originals sent with patient. Patient gathered all belongings. Patient educated on importance of following up with PCP. Patient walked off unit with partner.
== END 2017-01-31 17:55 | disposition home or self-care (01) | DRG 65 ==
LOC: SED 16:23 → OSC 18:58 → OBSVTOIN 18:58 → INTOOBSV 18:58
PROVIDERS: ADMIT Internal Medicine; ATTEND Internal Medicine
DX: I63.9 Cerebral infarction, unspecified (principal); N17.9 Acute kidney failure, unspecified; R47.81 Slurred speech; R29.810 Facial weakness; E86.0 Dehydration; I25.10 Atherosclerotic heart disease of native coronary artery without angina pectoris; I10 Essential (primary) hypertension; E11.9 Type 2 diabetes mellitus without complications; I25.2 Old myocardial infarction; Z95.5 Presence of coronary angioplasty implant and graft; Z79.82 Long term (current) use of aspirin; Z87.891 Personal history of nicotine dependence; Z79.84 Long term (current) use of oral hypoglycemic drugs; E78.5 Hyperlipidemia, unspecified